=== PATIENT | male | born 1955 | race Caucasian/White ===

== ENCOUNTER 2017-04-13 17:45 | Emergency (ER) | payer OTHER ==
[~2017-04-13] VITALS: Ht 182.9 cm; Wt 102.1 kg
--- OUTSIDE RECORDS SUMMARY | ~2017-04-13 | XMS ---
Demographics + + + | Address | [address] | | | [place] [address] | + + + | Preferred Language | Unknown | + + + | Marital Status | Unknown | + + + | Sabianist Affiliation | Unknown | + + + | Race | Unknown | + + + | Ethnic Group | Unknown | + + + Author + + + | Author | [facility] | + + + | Organization | [facility] | + + + | Address | [address] | | | [place] [address] | + + + | Phone | | + + + Care Team Providers + + + + | Care Rotary Machine Operator Name | Role | Phone | + + + + Unavailable | Unavailable | + + + + PROBLEMS + + + + + + + + | Type | Condition | ICD9-CM | [id number] | Onset | Condition | SNOMED | | | | Code | Code | Dates | Status | Code | + + + + + + + + | Assessment | Contusion | | S80.02XA | 20 July, | Active | [id number] | | | of left | | | 2017 | | [id number] | | | knee, | | | | | | | | initial | | | | | | | | encounter | | | | | | + + + + + + + + | Assessment | Closed | S82.002A | | 20 July, | Active | [id number] | | | fracture | | | 2016 | | [id number] | | | of left | | | | | | | | patella | | | | | | + + + + + + + + ALLERGIES + + + + +---------+ | Substance | Reaction | Event Type | Date | Status | + + + + +---------+ | Alonso | Unknown | Non Drug | July, | Unknown | | | | Allergy | | | + + + + +---------+ SOCIAL HISTORY No smoking Hx information available PLAN OF CARE VITAL SIGNS + + + + | Height | 73 in | 2016-07-20 | + + + + | Weight | 226.2 lbs | 2016-07-20 | + + + + | BMI | 29.84 kg/m2 | 2016-07-20 | + + + + | Temperature | 97.5 degrees Fahrenheit | 2016-07-20 | + + + + | Heart Rate | 62 /min | 2016-07-20 | + + + + | Blood pressure systolic | 127 mm Hg | 2016-07-20 | + + + + | Blood pressure diastolic | 87 mm Hg | 2016-07-20 | + + + + MEDICATIONS + + + + + + + +--------+ | Medicati | Instruct | Dosage | Frequenc | Start | End Date | Duration | Status | | on | ions | | y | Date | | | | + + + + + + + +--------+ | Ibuprofe | Orally | 1 tablet | 8h | 12 July, | 12 July, | 10 | Active | | n 800 MG | Three | | | 2017 | 2016 | day(s) | | | | times a | | | | | | | | | day | | | | | | | + + + + + + + +--------+ RESULTS + +--------+------+ + | Name | Result | Date | Reference Range | + +--------+------+ + | X ray : Knee AP/L | | | | | (2 views)- LT | | | | + +--------+------+ + PROCEDURES + + + + + | Procedure | Date Ordered | Related Diagnosis | Body Site | + + + + + | Est Level III | July 20, 2016 | | | | Intermediate | | | | + + + + + IMMUNIZATIONS No Known Immunizations"
[~2017-04-13 17:45] MED LIST: DOXYCYCLINE HY100 MG PO; HYDROCODON-ACE1 EA11 PO; MUPIROCIN22 GM TOP; NORCO 5-325 TA1 EACH PO; SULFAMETHOXAZO1 EAC1 PO
--- NOTE | 2017-04-13 19:08 | EKG ---
[facility] [address] [place] [address] Signed Sinus tachycardia Otherwise normal ECG When compared with ECG of 27-JUL-2016 14:26, Vent. rate has increased BY 39 BPM Confirmed by CELIO GARCIAS MD ([id number]) on 04/13/2017 7:08:31 PM Electronically Signed By: CELIO GARCIAS MD 04/13/17 [id number] PATIENT NAME: BRIDGER EPPERSONIAL Electrocardiogram DATE OF : 51 PHYSICIAN: CELIO GARCIAS MD REPORT #: [id number] REPORT IS CONFIDENTIAL AND NOT TO BE RELEASED WITHOUT AUTHORIZATION
[2017-04-13] MEDS ORDERED: ATIVAN1 MG PO (19:56)
== END 2017-04-13 20:29 | disposition home or self-care (01) ==
LOC: ED 17:45
DX: F41.9 Anxiety disorder, unspecified (principal); F43.0 Acute stress reaction; I10 Essential (primary) hypertension; Z86.19 Personal history of other infectious and parasitic diseases; Z91.040 Latex allergy status
CPT/HCPCS: 71045; 80053; 84484; 85025; 85379; 93005; 93010; 96374; 99284; J2060

== ENCOUNTER 2017-08-11 07:20 | Emergency (ER) | payer OTHER ==
[~2017-08-11] VITALS: Ht 182.9 cm; Wt 102.1 kg
[~2017-08-11 07:20] MED LIST changes: +ATIVAN1 MG PO
[2017-08-11] MEDS ORDERED: CLEOCIN HCL300 MG PO (10:13)
== END 2017-08-11 12:10 | disposition home or self-care (01) ==
LOC: ED 07:20
DX: L03.115 Cellulitis of right lower limb (principal); K80.20 Calculus of gallbladder without cholecystitis without obstruction; I10 Essential (primary) hypertension; Z91.040 Latex allergy status
CPT/HCPCS: 71046; 71260; 80053; 85025; 85379; 93971; 96365; 99284; J3370; Q9967

== ENCOUNTER 2017-08-13 09:17 | Emergency (ER) | payer OTHER ==
[~2017-08-13] VITALS: Ht 182.9 cm; Wt 102.1 kg
[~2017-08-13 09:17] MED LIST changes: +CLEOCIN HCL300 MG PO
== END 2017-08-13 10:20 | disposition home or self-care (01) ==
LOC: ED 09:17
DX: L03.115 Cellulitis of right lower limb (principal); I10 Essential (primary) hypertension; Z91.040 Latex allergy status
CPT/HCPCS: 99282

== ENCOUNTER 2019-02-24 17:35 | Emergency (ER) | payer OTHER, MEDICARE ==
[~2019-02-24] VITALS: Ht 182.9 cm; Wt 102.1 kg
--- OUTSIDE RECORDS SUMMARY | ~2019-02-24 | XMS | Clinical Summary ---
Demographics + + + | Address | [address] | | | [place] [address] | + + + | Home Phone | | + + + | Preferred Language | Unknown | + + + | Marital Status | Unknown | + + + | Mormonism Affiliation | 1077 | + + + | Race | Unknown | + + + | Ethnic Group | Unknown | + + + Author + + + | Author | [facility] | | | and [place] | + + + | Organization | [facility] | | | and [place] | + + + | Address | Unknown | + + + | Phone | Unavailable | + + + Support + + +---------+ + | Name | Relationship | Address | Phone | + + +---------+ + | Rebeka Lord | ECON | Unknown | | + + +---------+ + Care Team Providers + +------+ + | Care Service Car Operator Name | Role | Phone | + +------+ + | Otis Carias DO | PCP | | + +------+ + Allergies Not on File Medications Not on file Active Problems Not on file Family History + + +------+ + | Medical History | Relation | Name | Comments | + + +------+ + | Hypertension | Other | | | + + +------+ + + +------+--------+ + | Relation | Name | Status | Comments | + +------+--------+ + | Other | | | | + +------+--------+ + Social History + +-------+ +--------+------+ | Tobacco Use | Types | Packs/Day | Years | Date | | | | | Used | | + +-------+ +--------+------+ | Former Smoker | | | | | + +-------+ +--------+------+ + + + | Sex Assigned at | Date Recorded | | | | + + + | Not on file | | + + + + + + + | Job Start Date | Occupation | Industry | + + + + | Not on file | Not on file | Not on file | + + + + + + + + | Travel History | Travel Start | Travel End | + + + + + + | No recent travel history available. | + + Last Filed Vital Signs Not on file Plan of Treatment + + + + + | Health Maintenance | Due Date | Last Done | Comments | + + + + + | Vaccine: | | | | | Dtap/Tdap/Td (1 - | 3 | | | | Tdap) | | | | + + + + + | Vaccine: Zoster (1 | | | | | of 2) | 4 | | | + + + + + | Vaccine: | | | | | Pneumococcal 65+ (1 | 9 | | | | of 2 - PCV13) | | | | + + + + + | Vaccine: Influenza | | | | | (#1) | 9 | | | + + + + + Results Not on filefrom Last 3 Months"
--- OUTSIDE RECORDS SUMMARY | ~2019-02-24 | XMS | Clinical Summary ---
Demographics + + + | Address | [address] | | | [place] [address] | + + + | Home Phone | | + + + | Preferred Language | Unknown | + + + | Marital Status | Unknown | + + + | Sikh Affiliation | Unknown | + + + | Race | Unknown | + + + | Ethnic Group | Unknown | + + + Author + + + | Author | [facility] (Historical as of | | | 10-27-18) | + + + | Organization | [facility] (Historical as of | | | 10-27-18) | + + + | Address | Unknown | + + + | Phone | Unavailable | + + + Support + + +---------+ + | Name | Relationship | Address | Phone | + + +---------+ + | Detailed,Lee | ECON | Unknown | | + + +---------+ + | Sasha Zepeda | ECON | Unknown | | + + +---------+ + Care Team Providers + +------+ + | Care Media Professional Name | Role | Phone | + +------+ + | Otis Carias DO | PP | | + +------+ + Allergies No Known Allergies Current Medications No known medications Active Problems + + + | Problem | Noted Date | + + + | Myofascial pain | 01/31/2013 | + + + | Degenerative disc disease | 01/31/2013 | + + + | Facet arthropathy | 01/31/2013 | + + + | Cervical radiculitis | 01/31/2013 | + + + Family History + + +------+ + | Medical History | Relation | Name | Comments | + + +------+ + | Hypertension | | | | + + +------+ + + +------+--------+ + | Relation | Name | Status | Comments | + +------+--------+ + Social History + +-------+ +--------+------+ | Tobacco Use | Types | Packs/Day | Years | Date | | | | | Used | | + +-------+ +--------+------+ | Former Smoker | | | | | + +-------+ +--------+------+ + + +---------+ + | Alcohol Use | Drinks/We | oz/Week | Comments | | | ek | | | + + +---------+ + | No | | | | + + +---------+ + + + + | Sex Assigned at | Date Recorded | | | | + + + | Not on file | | + + + Last Filed Vital Signs + + + + | Vital Sign | Reading | Time Taken | + + + + | Blood Pressure | 145/87 | 01/31/2013 9:21 AM PST | + + + + | Pulse | 62 | 01/31/2013 9:21 AM PST | + + + + | Temperature | - | - | + + + + | Respiratory Rate | - | - | + + + + | Oxygen Saturation | 97% | 01/31/2013 9:21 AM PST | + + + + | Inhaled Oxygen | - | - | | Concentration | | | + + + + | Weight | 103 kg (227 lb) | 01/31/2013 9:21 AM PST | + + + + | Height | 185.4 cm (6' 1") | 01/31/2013 9:21 AM PST | + + + + | Body Mass Index | 29.95 | 01/31/2013 9:21 AM PST | + + + + Plan of Treatment + + + + [...] | | | | | Pneumococcal 65+ | 9 | | | | Low/Medium Risk (1 | | | | | of 2 - PCV13) | | | | + + + + + | Vaccine: Influenza | | | | | (#1) | 9 | | | + + + + + Results Not on filefrom Last 3 Months Insurance + +--------+ +------+-------+---------+ | Payer | Benefi | Subscriber | Type | Phone | Address | | | t Plan | ID | | | | | | / | | | | | | | Group | | | | | + +--------+ +------+-------+---------+ | [employer] | [employer] | [id number] | | | | | | HEALTH | | | | | | | PLAN | | | | | + +--------+ +------+-------+---------+ + +--------+ +--------+ + + | Guarantor Name | Accoun | Relation to | Date | Phone | Billing Address | | | t Type | Patient | of | | | | | | | | | | + +--------+ +--------+ + + | BRIDGER ZEPEDA | Person | Self | [birth year] | Home: | [address] | | | al/Fam | | [phone] [place] | | | [place] | | | [phone] | [phone] | + +--------+ +--------+ + +
--- OUTSIDE RECORDS SUMMARY | ~2019-02-24 | XMS | Clinical Summary ---
Demographics + + + | Address | [address] | | | [place] [address] | + + + | Home Phone | | + + + | Preferred Language | Unknown | + + + | Marital Status | Unknown | + + + | Christianity Affiliation | Unknown | + + + | Race | Unknown | + + + | Ethnic Group | Unknown | + + + Author + + + | Author | [facility] (Historical as of | | | 10-27-18) | + + + | Organization | [facility] (Historical as of | | | 10-27-18) [...] Team Providers + +------+ + | Care Leather Grainer Name | Role | Phone | + [...] | [employer] | ODS | [id number] | | | | | | HEALTH [...] | [place] | | | [phone] | [phone] | + +--------+ +--------+ + +
--- OUTSIDE RECORDS SUMMARY | ~2019-02-24 | XMS | Encounter Summary ---
Demographics + + + | Address | [address] | | | [place] [address] | + + + | Home Phone | | + + + | Preferred Language | Unknown | + + + | Marital Status | Unknown | + + + | Methodist Affiliation | 1077 | + + + | Race | Unknown | + + + | Ethnic Group | Unknown | + + + Author + + + | Author | [facility] | | | and [place] | + + + | Organization | [facility] | | | and [...] Team Providers + +------+ + | Care Gasket Maker Name | Role | Phone | + +------+ + PCP | Unavailable | + +------+ + Encounter Details +--------+ + + + + | Date | Type | Department | Care Team | Description | +--------+ + + + + | 03/28/ | Hospital | [facility] | Conversion | Neck pain | | 2013 | Encounter | CONVERSION [address]P [address] | Transaction, | | | | | [address] | Provider Unknown | | | | | [place] | | | | | | [phone] | (Fax) | | | | | [phone] | | | +--------+ + + + + Social History + +-------+ +--------+------+ | Tobacco Use | Types | Packs/Day | Years | Date | | | | | Used | | + +-------+ +--------+------+ | Never Assessed | | | | | + +-------+ [...] recent travel history available. | + + documented as of this encounter Plan of Treatment Not on filedocumented as of this encounter Procedures + +--------+ + + + | Procedure Name | Priori | Date/Time | Associated Diagnosis | Comments | | | ty | | | | + +--------+ + + + | MRI CERVICAL SPINE | Routin | 06/04/2012 | | Results for this | | WO CONTRAST | e | 7:05 AM | | procedure are in the | | | | PDT | | results section. | + +--------+ + + + documented in this encounter Results MRI Cervical Spine wo Contrast (06/04/2012 7:05 AM PDT) + + | Specimen | + + | | + + + + + | Narrative | Performed At | + + + | This is a non-reportable procedure without a radiologist report and | | | is used for image storage only | | + + + + + | Procedure Note | + + | Joe Joiner - 10/26/2018 12:58 PM PDT This is a non-reportable procedure | | without a radiologist report and isused for image storage only | + + documented in this encounter Visit Diagnoses + + | Diagnosis | + + | Neck pain Cervicalgia | + + documented in this encounter"
--- OUTSIDE RECORDS SUMMARY | ~2019-02-24 | XMS | Encounter Summary ---
Demographics + + + | Address | [address] | | | [place] [address] | + + + | Home Phone | | + + + | Preferred Language | Unknown | + + + | Marital Status | Unknown | + + + | Sikhism Affiliation | 1077 | + + + | Race | Unknown | + + + | Ethnic Group | Unknown | + + + Author + + + | Author | [facility] | | | and [place] | + + + | Organization | [facility] | | | [...] Team Providers + +------+ + | Care Tree And Shrub Worker Name | Role | Phone | + +------+ + PCP | Unavailable | + +------+ + Encounter Details +--------+ + + + + | Date | Type | Department | Care Team | Description | +--------+ + + + + | 03/28/ | Hospital | [facility] | Conversion | Neck pain | | 2013 | Encounter | CONVERSION [address] | Transaction, | | | | | [address] | Provider Unknown | | | | | [place] | | | | | | [phone] | (Fax) | | | | | [phone] | | | +--------+ + + + [...]
--- OUTSIDE RECORDS SUMMARY | ~2019-02-24 | XMS | Encounter Summary ---
Demographics + + + | Address | [address] | | | [place] [address] | + + + | Home Phone | | + + + | Preferred Language | Unknown | + + + | Marital Status | Unknown | + + + | Holiness Affiliation | 1077 | + + + | Race | Unknown | + + + | Ethnic Group | Unknown | + + + Author + + + | Author | [facility] | | | and [place] | + + + | Organization | [facility] | | | [...] Team Providers + +------+ + | Care Check Embosser Name | Role | Phone | + +------+ + PCP | Unavailable | + +------+ + Encounter Details +--------+ + + + + | Date | Type | Department | Care Team | Description | +--------+ + + + + | 05/22/ | Hospital | [facility] | Domingo Padilla, | | | 2008 | Encounter | MED [address]RAY [address] | MD [address] | | | | | [place] | [place] | | | | | [place] [address] | [id number] | | | | | [phone] | | | +--------+ + + + [...] Not on filedocumented as of this encounter Visit Diagnoses Not on filedocumented in this encounter"
--- OUTSIDE RECORDS SUMMARY | ~2019-02-24 | XMS | Encounter Summary ---
Demographics + + + | Address | [address] | | | [place] [address] | + + + | Home Phone | | + + + | Preferred Language | Unknown | + + + | Marital Status | Unknown | + + + | Sabianism Affiliation | 1077 | + + + [...] Team Providers + +------+ + | Care Florist Supplies Salesperson Name | Role | Phone | + +------+ + PCP | Unavailable | + +------+ + Encounter Details +--------+ + + + + | Date | Type | Department | Care Team | Description | +--------+ + + + + | 05/22/ | Hospital | [facility] | Domingo Padilla, | | | 2008 | Encounter | MED CTR XRAY [address] | MD [address] | | | | | Deborah Mcdonough | [place] | | | | | [place] [address] | [id number] | | | | | [phone] | | | +--------+ + + + [...]
--- OUTSIDE RECORDS SUMMARY | ~2019-02-24 | XMS | Clinical Summary ---
Demographics + + + | Address | [address] | | | [place] [address] | + + + | Home Phone | | + + + | Preferred Language | Unknown | + + + | Marital Status | Unknown | + + + | Sikhism Affiliation | 1077 | + + + | Race | Unknown | + + + | Ethnic Group | Unknown | + + + Author + + + | Author | [facility] | | | and [place] | + + + | Organization | [facility] | | | [...] Team Providers + +------+ + | Care President Sales And Marketing Name | Role | Phone | + [...]
[2019-02-24] MEDS ORDERED: OMEPRAZOLE20 MG PO (21:27)
--- NOTE | 2019-02-26 12:50 | EKG ---
[facility] [address] [place] [address] Signed Normal sinus rhythm Normal ECG When compared with ECG of 13-APR-2017 17:47, Vent. rate has decreased BY 41 BPM Confirmed by JUAN CHAUDHARI MD ([id number]) on 02/26/2019 12:49:57 PM Electronically Signed By: JUAN CHAUDHARI MD 02/26/19 1250 PATIENT NAME: BRIDGER EPPERSONIAL Electrocardiogram DATE OF : 51 PHYSICIAN: JUAN CHAUDHARI MD REPORT #: [id number] REPORT IS CONFIDENTIAL AND NOT TO BE RELEASED WITHOUT AUTHORIZATION
== END 2019-02-24 21:35 | disposition home or self-care (01) ==
LOC: ED 17:35
DX: R10.13 Epigastric pain (principal); I10 Essential (primary) hypertension; Z91.040 Latex allergy status
CPT/HCPCS: 71046; 80053; 83690; 84484; 85025; 93005; 93010; 96374; 96375; 99284-25; C9113; J2405

== ENCOUNTER 2020-11-24 07:10 | Day surgery (SDC) | payer MEDICARE, OTHER ==
[~2020-11-24] VITALS: Ht 185.4 cm; Wt 97.3 kg
[~2020-11-24 07:10] MED LIST changes: +OMEPRAZOLE20 MG PO
--- NOTE | 2020-11-24 09:24 | NUR ---
11/24/20 0924 June Ann 0918 PATIENT ARRIVES TO PACU RESTING WITH EYES CLOSED. AWAKENS WITH REPEATED STIMULI, BACK TO SLEEP WHEN NOT STIMULATED. RESP EVEN AND UNLABORED, NC AT 2 LITERS. PATIENT DENIES NEEDS WHEN AWAKE.
--- NOTE | 2020-11-25 07:21 | OR ---
[facility] [address] [place], [place] [address] Signed DATE OF OPERATION: 11/24/2020 SURGEON: Paz Bhatt MD PREOPERATIVE DIAGNOSES: 1. Epigastric abdominal pain. 2. Hiatal hernia. 3. Gastroesophageal reflux disease. 4. Helicobacter pylori treated recently. 5. Personal history of colonic polyps in 2005, 2009, and 2015. 6. Internal and external hemorrhoids. POSTOPERATIVE DIAGNOSES: 1. Small to moderate sized hiatal hernia (39-35 cm). 2. Jwox-mn-bwyxrfzd gastritis. 3. 3 mm polyp at 7 cm. 4. 4 mm polyp at 65 cm. 5. 3 mm polyp at cecum. 6. Moderate-sized single sigmoid diverticulum. 7. Minimal internal hemorrhoids. 8. Indurated prostate gland. PROCEDURES: 1. EGD with CLOtest and biopsies of the antrum. 2. Colonoscopy with hot biopsy. ESTIMATED BLOOD LOSS: None. INDICATIONS: Bridger is a 65-year-old gentleman, I have known for many years. He was asked to see me for followup lower endoscopy, but also upper endoscopy. He was having upper abdominal and chest complaints. He had some shortness of breath. He underwent a cardiac cath last year, which was unremarkable. Pulmonary function tests were unremarkable. His upper GI in September of this year showed a small hiatal hernia with acid reflux, but no stricture or dysmotility. His stool came back positive for H pylori. He took his amoxicillin, clarithromycin and Prilosec. Overall, I think he is better. He is still on Prilosec. In addition, he has had hyperplastic polyps, adenomatous polyps and serrated adenomatous polyps removed during 2005, 2009 and 2015. He is known to have internal and external hemorrhoids. He has no family history of colon cancer or polyps. Electronically Signed By: PAZ BHATT MD 11/25/20 0721 PATIENT NAME: BRIDGER EPPERSON OPERATIVE REPORT DATE OF : 51 REPORT #: [id number] PHYSICIAN: PAZ BHATT MD PCP: GREGG MCCARTY MD REPORT IS CONFIDENTIAL AND NOT TO BE RELEASED WITHOUT AUTHORIZATION [facility] [address] [place], [place] [address] Signed In the office, I gave Bridger a pamphlet on upper and lower endoscopy. He understands the nature of the two tests. There is risk including, but not limited to gas bloating, crampy abdominal pain, bleeding, perforation requiring surgery, and missed diagnosis. There was also the need for IV conscious sedation. He has done well with Versed and fentanyl in the past. He had expressed understanding and wished to proceed. PROCEDURE NOTE: Bridger was taken into our endoscopy suite and placed in the supine semi-recumbent position. The posterior oropharynx was anesthetized with Hurricaine spray. A bite block was utilized for the case. The adult gastroscope was introduced and advanced under direct visualization of camera into the duodenum without difficulty. The duodenum and pyloric channel were unremarkable. He still has ocsg-hc-lwbdwqqb erythematous changes throughout the stomach. No ulcerations. We took a biopsy of the antrum for CLOtest as well as pathologic review. Upon retroflexion of scope, we can see a small to moderate sized hiatal hernia. The scope was then withdrawn up through the area of the GE junction, which was compliant without stricture. His hiatal hernia measured out from 39 to 35 cm. He has minimal disruption to the Z-line. There was no Sommer's mucosa. No distal esophagitis. His middle and upper esophagus were unremarkable. After this, the gas was suctioned out and the gastroscope removed. Bridger tolerated his upper endoscopy quite well. Bridger was rotated into the left lateral decubitus position. He was maintained on IV sedation with Versed and fentanyl. A digital rectal exam was performed. He really had little in the way of external hemorrhoids. His prostate is moderately enlarged, fairly significantly indurated. The adult colonoscope was then introduced, advanced all around into the cecum under direct visualization of the camera without difficulty. His prep was good. We could easily see the appendiceal orifice and ileocecal valve. We took pictures throughout for photodocumentation. The above-mentioned polyps were easily removed with the help of hot biopsy forceps. On withdrawal of the scope, we saw just a single moderate-sized diverticulum in his mid sigmoid colon. The scope had been retroflexed in the rectum and he does have minimal internal hemorrhoid columns. After this, the gas was suctioned out and colonoscope removed. Bridger tolerated his lower endoscopy quite well. RECOMMENDATIONS: I will see Bridger back in my office in 7 to 14 days to review his results. Paz Bhatt MD Electronically Signed By: PAZ BHATT MD 11/25/20 0721 PATIENT NAME: BRIDGER EPPERSON OPERATIVE REPORT DATE OF : 51 REPORT #: [id number] PHYSICIAN: PAZ BHATT MD PCP: GREGG MCCARTY MD REPORT IS CONFIDENTIAL AND NOT TO BE RELEASED WITHOUT AUTHORIZATION [facility] [address] [place] [place] [address] Signed ALB/MODL /[id number] cc: MD Gregg Mcd[place] MD Copies: PAZ BHATT MD, ROBERT D DMD ~ Electronically Signed By: PAZ BHATT MD 11/25/20 0721 PATIENT NAME: BRIDGER EPPERSON JAKUB OPERATIVE REPORT DATE OF : 51 REPORT #: [id number] PHYSICIAN: PAZ BHATT MD PCP: GREGG MCCARTY MD REPORT IS CONFIDENTIAL AND NOT TO BE RELEASED WITHOUT AUTHORIZATION
--- NOTE | 2020-11-26 17:56 | PATH ---
[facility] [address] [place], [place] [address] Signed SPECIMEN(S): A ANTRUM/PYLORUS BIOPSY SPECIMEN(S): B RECTAL POLYP AT 7 CM SPECIMEN(S): C COLON POLYP AT 65 CM SPECIMEN(S): D CECUM POLYP SPECIMEN SOURCE: A. ANTRUM/PYLORUS BIOPSY B. RECTAL POLYP AT 7 CM C. COLON POLYP AT 65 CM D. CECUM POLYP CLINICAL HISTORY: Esophagogastroduodenoscopy, colonoscopy. GERD, hiatal hernia, epigastric pain, personal history of polyps, internal and external hemorrhoids, history of positive H. pylori. Post: Gastritis, hiatal hernia, colon/rectal polyps, diverticulosis. MICROSCOPIC DESCRIPTION: Histologic sections of all submitted blocks are examined by light microscopy. These findings, together with the gross examination, support the pathologic diagnosis. FINAL PATHOLOGIC DIAGNOSIS: A. Stomach, antrum/pylorus, biopsy: - Gastric antral mucosa with chronic inactive gastritis. - Negative for Helicobacter pylori by IHC (valid controls). B. Rectum, 7 cm, polypectomy: - Colonic mucosa with mild hyperplastic changes. C. Colon, 65 cm, polypectomy: - Tubular adenoma. D. Cecum, polypectomy: - Inflammatory-type polyp. BRP:cml:caw:C2NR GROSS DESCRIPTION: Four specimens are received in four containers, labeled "HL." A. The specimen, labeled "HL, antrum biopsy," is received in formalin and consists of one kim soft tissue fragment that measures 0.3 cm in greatest dimension. The specimen is entirely submitted in cassette (A1). B. The specimen, labeled "HL, rectal polyp at 7 cm," is received in formalin and consists of one kim soft tissue fragment that measures 0.2 cm in greatest PATIENT NAME: BRIDGER EPPERSON PATHOLOGY DATE OF : 51 REPORT #: [id number] PHYSICIAN: GARY PATHOLOGY PCP: GREGG MCCARTY MD REPORT IS CONFIDENTIAL AND NOT TO BE RELEASED WITHOUT AUTHORIZATION [facility] [address] [place], [place] [address] Signed dimension. The specimen is entirely submitted in cassette (B1). C. The specimen, labeled "HL, colon polyp at 65 cm," is received in formalin and consists of one kim soft tissue fragment that measures 0.2 cm in greatest dimension. The specimen is entirely submitted in cassette (C1). D. The specimen, labeled "HL, cecum polyp," is received in formalin and consists of two kim soft tissue fragments that measure 0.2 cm in greatest dimension. The specimen is entirely submitted in cassette (D1). JS (under the direct supervision of a pathologist) The Gross Description was prepared using a voice recognition system. The report was reviewed for accuracy; however, sound-alike word errors, addition and/or deletions may occur. If there is any question about this report, please contact Client Services. PERFORMING LABORATORY: The technical component was performed by [facility] [address] (Bag Liner: Renetta Irwin MD; CLIA# [id number]). [facility] [address] [address] (CLIA# [id number]). Diagnostician: Bob Cui MD Pathologist Electronically Signed 11/26/2020 Copies: ~ PATIENT NAME: BRIDGER EPPERSON JAKUB PATHOLOGY DATE OF : 51 REPORT #: [id number] PHYSICIAN: GARY PATHOLOGY PCP: GREGG MCCARTY MD REPORT IS CONFIDENTIAL AND NOT TO BE RELEASED WITHOUT AUTHORIZATION
== END 2020-11-24 10:00 | disposition home or self-care (01) ==
LOC: DS 07:10 → OPS 07:10
PROVIDERS: ATTEND Colon & Rectal Surgery
PROC: 0DBE8ZX Excision of Large Intestine, Via Natural or Artificial Opening Endoscopic, Diagnostic (ICD-10-PCS; 2020-11-24)
PROC: 0DBP8ZX Excision of Rectum, Via Natural or Artificial Opening Endoscopic, Diagnostic (ICD-10-PCS; 2020-11-24)
PROC: 0DB78ZX Excision of Stomach, Pylorus, Via Natural or Artificial Opening Endoscopic, Diagnostic (ICD-10-PCS; principal; 2020-11-24 08:30)
PROC: 0DBH8ZX Excision of Cecum, Via Natural or Artificial Opening Endoscopic, Diagnostic (ICD-10-PCS; 2020-11-24 08:30)
DX: K29.50 Unspecified chronic gastritis without bleeding (principal); D12.6 Benign neoplasm of colon, unspecified; K62.1 Rectal polyp; K44.9 Diaphragmatic hernia without obstruction or gangrene; K57.30 Diverticulosis of large intestine without perforation or abscess without bleeding; K21.9 Gastro-esophageal reflux disease without esophagitis; K64.0 First degree hemorrhoids; K64.4 Residual hemorrhoidal skin tags; I10 Essential (primary) hypertension; E78.5 Hyperlipidemia, unspecified; Z86.19 Personal history of other infectious and parasitic diseases; Z86.018 Personal history of other benign neoplasm; Z88.2 Allergy status to sulfonamides; Z91.040 Latex allergy status; Z87.19 Personal history of other diseases of the digestive system
CPT/HCPCS: 99153; G0500; J2250; J3010; J7121

== ENCOUNTER 2021-06-18 08:00 | Day surgery (SDC) | payer MEDICARE, OTHER ==
[~2021-06-18] VITALS: Ht 185.4 cm; Wt 100.0 kg
--- NOTE | 2021-06-18 10:04 | NUR ---
06/18/21 Marylu4 Janet Davis 0946 PT TO PACU AWAKE ALERT AND TALKING, PROCEDURE WAS DONE, NO HERNIA WAS NOTED. 0948 O2 TURNED OFF SATES MAINTAINED AT 100% 0949 DR BHATT AT BEDSIDE EXPAINING TO PT WHY PROCEDURE NOT DONE. PT VOICED UNDERSTANDING,
== END 2021-06-18 10:30 | disposition home or self-care (01) ==
LOC: DS 08:00
PROVIDERS: ATTEND Colon & Rectal Surgery
DX: L90.5 Scar conditions and fibrosis of skin (principal); Z98.890 Other specified postprocedural states; Z53.8 Procedure and treatment not carried out for other reasons; I10 Essential (primary) hypertension; E78.5 Hyperlipidemia, unspecified; Z86.19 Personal history of other infectious and parasitic diseases; Z87.19 Personal history of other diseases of the digestive system; Z88.2 Allergy status to sulfonamides; Z91.040 Latex allergy status
CPT/HCPCS: J0690; J1100; J1644; J1885; J2250; J2405; J2704; J2765; J3010; J7121

== ENCOUNTER 2023-02-03 09:34 | Emergency (ER) | payer MEDICARE, OTHER ==
[~2023-02-03] VITALS: Ht 185.4 cm; Wt 99.8 kg
[2023-02-03 11:28] LABS: BASOPHILS 0.5 % (0-2); EOSINOPHILS 1.4 % (0-6); HEMATOCRIT 38.9 % (35.0-50.0); HEMOGLOBIN 13.2 g/dL (12.0-18.0); LYMPHOCYTES 19.1 % (24-44); MCH 31.4 (27-36); MCHC 33.8 g/dl (30-36); MCV 92.8 fl (81-99); MONOCYTES 6.3 % (0-12); NEUTROPHILS 72.7 % (39-80); PLATELET COUNT 195 K/uL (140-440); RBC 4.19 M/ul (4.3-5.7); RDW 13.6 (10.5-15.0)
[2023-02-03 11:42] LABS: ALBUMIN 3.5 g/dL (3.4-5.0); ALBUMIN/GLOBULIN RATIO 1.03 (1.1-2.4); ANION GAP 12.1 (7-21); BILIRUBIN, TOTAL 0.7 ng/dL (0.2-1.0); BUN/CREATININE RATIO 19.73 (6.0-28.6); CREATININE, SERUM 0.76 mg/dL (0.70-1.30); POTASSIUM 4.1 mmol/L (3.5-5.1); PROTEIN, TOTAL 6.9 g/dL (6.4-8.2)
[2023-02-03 13:08] VITALS: BP 118/69
--- NOTE | 2023-02-04 06:31 | EKG ---
[facility] [address] [facility] [place] [address] Signed Normal sinus rhythm with sinus arrhythmia Normal ECG When compared with ECG of 14-JUN-2021 13:43, premature ventricular complexes are no longer present Criteria for Septal infarct are no longer present Confirmed by LINO GO MD ([id number]) on 02/04/2023 6:31:28 AM Electronically Signed By: LINO GO 02/04/23 0631 PATIENT NAME: BRIDGER EPPERSONIAL Electrocardiogram DATE OF : 51 PHYSICIAN: LINO GO REPORT #: [id number] REPORT IS CONFIDENTIAL AND NOT TO BE RELEASED WITHOUT AUTHORIZATION
== END 2023-02-03 13:09 | disposition home or self-care (01) ==
LOC: ED 09:34
PROVIDERS: Emergency Medicine
DX: R00.8 Other abnormalities of heart beat (principal); R42 Dizziness and giddiness; I10 Essential (primary) hypertension; Z88.1 Allergy status to other antibiotic agents; Z88.2 Allergy status to sulfonamides; Z91.040 Latex allergy status
CPT/HCPCS: 36415; 71045; 80053; 85025; 93005; 93010; 99284-25